=== PATIENT | female | born 1930 | race Caucasian/White ===

== ENCOUNTER 2018-01-19 19:51 | Inpatient (IN) | payer MEDICARE, OTHER ==
[~2018-01-19] VITALS: Ht 162.6 cm; Wt 46.7 kg
[2018-01-19 19:51] VITALS: BP_SYST 136
[2018-01-19] MEDS ORDERED: IPRATROPIUM/ALBUTEROL SULFATE 3 ML AMPUL.NEB (DUONEB) INH ONE (20:00)
[2018-01-19] MEDS ORDERED: ONDANSETRON HCL 4 MG/2 ML VIAL ONE (20:24)
[2018-01-19] MEDS ORDERED: ONDANSETRON HCL 4 MG/2 ML VIAL IVP ONE (20:30)
[2018-01-19 20:35] LABS: ANION GAP 7 (5-15); CALCIUM 9.3 mg/dL (8.4-11.0); CHLORIDE 102 mmol/L (98-107); CREATININE 4.85 mg/dL (0.55-1.30); GLUCOSE 91 mg/dL (70-99); POTASSIUM 3.9 mmol/L (3.5-5.1); SODIUM SERUM 142 mmol/L (136-145); UREA NITROGEN, BLOOD 64 mg/dL (8-21)
[2018-01-19 20:40] LABS: ALANINE AMINOTRANSFERASE 12 U/L (12-78); ALBUMIN 3.9 g/dL (3.4-4.8); ASPARTATE AMINOTRANSFERASE 13 U/L (10-37); TOTAL BILIRUBIN 0.7 mg/dL (0.0-1.0)
[2018-01-19 20:44] LABS: BASOPHILS % (AUTO) 0.1 % (0.0-2.0); EOSINOPHILS # (AUTO) 0.2 K/uL (0.0-0.4); EOSINOPHILS % (AUTO) 3.1 % (0.0-4.0); HEMATOCRIT 32.9 % (36-48); HEMOGLOBIN 10.9 g/dL (12.0-16.0); LYMPHOCYTES # (AUTO) 0.7 K/uL (1.0-5.5); LYMPHOCYTES % (AUTO) 10.3 % (20.5-51.5); MEAN CORPUSCULAR HEMOGLOBIN 32 pg (27-31); MEAN CORPUSCULAR HGB CONC 33 % (32-36); MEAN CORPUSCULAR VOLUME 97 fL (79.0-98.0); MONOCYTES # (AUTO) 0.6 K/uL (0.0-1.0); MONOCYTES % (AUTO) 7.8 % (1.7-9.3); NEUTROPHILS # (AUTO) 5.7 K/uL (1.8-7.7); NEUTROPHILS % (AUTO) 78.7 % (40.0-70.0); PLATELET COUNT (AUTO) 202 K/uL (130-430); RED CELL DISTRIBUTION WIDTH 15.6 % (9.0-15.0); WHITE BLOOD COUNT (AUTO) 7.2 K/uL (4.8-10.8)
[2018-01-19] MEDS ORDERED: fentaNYL CITRATE/PF 100 MCG/2 ML AMP IVP ONE (21:00)
[2018-01-19] MEDS ORDERED: FUROSEMIDE 40 MG/4 ML VIAL IVP ONE (21:15)
[2018-01-19] MEDS ORDERED: LIDOINT TP (22:39)
[2018-01-19] MEDS ORDERED: METO25TA6 PO (22:41)
[2018-01-19] MEDS ORDERED: TRAM50TA2 PO (22:42)
[2018-01-19] MEDS ORDERED: VITA1CAP PO (22:42)
[2018-01-19] MEDS ORDERED: LORA2TAB PO (22:43)
[2018-01-19] MEDS ORDERED: ISOS30TA6 PO (22:43)
[2018-01-19] MEDS ORDERED: PANT20TA2 PO (22:44)
[2018-01-19] MEDS ORDERED: FURO-149 PO (22:44)
[2018-01-19] MEDS ORDERED: LACT10SO6 PO (22:45)
[2018-01-19 22:46] LABS: CLARITY/URINE CLEAR (CLEAR); COLOR,URINE YELLOW (YELLOW); GLUCOSE,URINE NEGATIVE (NEGATIVE); PH,URINE 6.5 (5.0-8.0); PROTEIN URINE 1+ (NEGATIVE)
[2018-01-19] MEDS ORDERED: DOCU-144 PO (22:46)
[2018-01-19 22:47] LABS: BILIRUBIN,URINE NEGATIVE (NEGATIVE); BLOOD, URINE TRACE (NEGATIVE); KETONES,URINE NEGATIVE (NEGATIVE); LEUKOCYTE ESTERASE ,URINE 1+ (NEGATIVE); NITRITE, URINE NEGATIVE (NEGATIVE); UROBILINOGEN,URINE 0.2 (0.2-1.0)
[2018-01-19] MEDS ORDERED: PSYL3.4P5 PO (22:48)
[2018-01-19] MEDS ORDERED: ERGO500020 PO (22:49)
[2018-01-19 22:53] LABS: BACTERIA,URINE MANY /HPF (None Seen); WBC,URINE 80-100 /HPF (0-3)
[2018-01-19] MEDS ORDERED: NITSL SL (22:53)
[2018-01-19 22:54] LABS: YEAST,URINE Few /HPF (None Seen)
[2018-01-19] MEDS ORDERED: EMLA TP (22:55)
[2018-01-19] MEDS ORDERED: MYL80 PO (22:55)
[2018-01-19] MEDS ORDERED: POLY17PO4 PO (22:57)
[2018-01-19] MEDS ORDERED: DILT240C91 PO (22:58)
[2018-01-19] MEDS ORDERED: CHOL400C8 PO (22:58)
[2018-01-19] MEDS ORDERED: ACET-2634 PO (22:59)
[2018-01-19] MEDS ORDERED: CALC667T5 PO (23:00)
[2018-01-19] MEDS ORDERED: MOME13HF INH (23:00)
[2018-01-19] MEDS ORDERED: ALBU2.5V7 INH (23:01)
[2018-01-19] MEDS ORDERED: ATRMDI INH (23:03)
[2018-01-19] MEDS ORDERED: CALC0.258 PO (23:04)
[2018-01-19] MEDS ORDERED: TIOT4MIS5 IH (23:04)
[2018-01-19] MEDS ORDERED: ASPI-1153 PO (23:05)
[2018-01-19] MEDS ORDERED: IPRATROPIUM/ALBUTEROL SULFATE 3 ML AMPUL.NEB (DUONEB) INH PRN (23:15)
[2018-01-19 23:35] VITALS: BP_SYST 120
[2018-01-19 23:47] VITALS: BP_SYST 139
[2018-01-20 04:30] VITALS: BP_SYST 133
[2018-01-20] MEDS ORDERED: LORazepam 2 MG/ML VIAL IVP PRN (08:00)
[2018-01-20] MEDS ORDERED: POTASSIUM CHLORIDE 20 MEQ TAB.PRT.SR PO PRN (08:00)
[2018-01-20] MEDS ORDERED: IPRATROPIUM BROMIDE 17 mCg/ACTUATION, 12.9 GM AER.W.ADAP INH PRN (08:00)
[2018-01-20] MEDS ORDERED: DOCUSATE SODIUM 100 MG CAPSULE PO PRN (08:00)
[2018-01-20] MEDS ORDERED: ALBUTEROL SULFATE 0.083% 2.5 MG/3 ML VIAL.NEB INH PRN (08:00)
[2018-01-20] MEDS ORDERED: MAGNESIUM SULFATE 50 ML IV PRN (08:00)
[2018-01-20] MEDS ORDERED: MORPHINE 4 MG/ML INJ. SYRINGE IVP PRN ×2 (08:00)
[2018-01-20] MEDS ORDERED: ZOLPIDEM TARTRATE 5 MG TABLET PO PRN (08:00)
[2018-01-20] MEDS ORDERED: ACETAMINOPHEN 325 MG TABLET PO PRN (08:00)
[2018-01-20 08:03] VITALS: BP_SYST 140
[2018-01-20] MEDS ORDERED: FLUTICASONE/VILANTEROL 1 EACH BLST.W.DEV INH SCH (09:00)
[2018-01-20] MEDS ORDERED: cefTRIAXone 1 GM in D5W 50 ML IV SCH (09:00)
[2018-01-20] MEDS: HEPARIN SODIUM,PORCINE 5000 UNITS/ML VIAL SUBCUT SCH ×2 (09:30→21:00)
[2018-01-20] MEDS: FUROSEMIDE 40 MG TABLET PO SCH (09:31)
[2018-01-20] MEDS: DILTIAZEM HCL 240 MG CAP.SR.24H PO SCH (09:31)
[2018-01-20] MEDS: ISOSORBIDE MONONITRATE 30 MG TAB.ER.24H PO SCH (09:32)
[2018-01-20] MEDS: FLUCONAZOLE 100 MG TABLET (DIFLUCAN) PO SCH (09:32)
[2018-01-20] MEDS: METOPROLOL TARTRATE 25 MG TABLET PO SCH ×3 (09:32→22:51)
[2018-01-20] MEDS: PIPERACILLIN/TAZO 2.25G/DEX-IS 50 ML IV SCH ×3 (09:57→22:51)
[2018-01-20] MEDS ORDERED: IPRATROPIUM BROM 0.5 MG/2.5 ML VIAL.NEB (ATROVENT) INH SCH (11:00)
[2018-01-20] MEDS ORDERED: methylPREDNISolone SOD SUCC 40 MG/ML VIAL IVP ONE (11:30)
[2018-01-20 12:07] VITALS: BP_SYST 111
[2018-01-20 16:00] VITALS: BP_SYST 117
[2018-01-20] MEDS: IPRATROPIUM BROM 0.5 MG/2.5 ML VIAL.NEB (ATROVENT) INH SCH (19:59)
[2018-01-20] MEDS: ALBUTEROL SULFATE 0.083% 2.5 MG/3 ML VIAL.NEB INH SCH (19:59)
[2018-01-20 20:00] VITALS: BP_SYST 129
[2018-01-20] MEDS: methylPREDNISolone SOD SUCC 40 MG/ML VIAL IVP SCH ×2 (21:00→22:50)
[2018-01-21 01:02] VITALS: BP_SYST 102
[2018-01-21] MEDS: ALBUTEROL SULFATE 0.083% 2.5 MG/3 ML VIAL.NEB INH SCH ×3 (01:05→14:10)
[2018-01-21] MEDS: IPRATROPIUM BROM 0.5 MG/2.5 ML VIAL.NEB (ATROVENT) INH SCH ×3 (01:05→14:11)
[2018-01-21] MEDS: PIPERACILLIN/TAZO 2.25G/DEX-IS 50 ML IV SCH ×2 (05:29→13:29)
[2018-01-21 07:37] LABS: BASOPHILS % (AUTO) 0.1 % (0.0-2.0); EOSINOPHILS % (AUTO) 0.1 % (0.0-4.0); HEMATOCRIT 30.9 % (36-48); HEMOGLOBIN 9.9 g/dL (12.0-16.0); LYMPHOCYTES # (AUTO) 0.4 K/uL (1.0-5.5); LYMPHOCYTES % (AUTO) 7.6 % (20.5-51.5); MEAN CORPUSCULAR HEMOGLOBIN 31 pg (27-31); MEAN CORPUSCULAR HGB CONC 32 % (32-36); MEAN CORPUSCULAR VOLUME 96 fL (79.0-98.0); MONOCYTES # (AUTO) 0.3 K/uL (0.0-1.0); MONOCYTES % (AUTO) 4.7 % (1.7-9.3); NEUTROPHILS # (AUTO) 5.1 K/uL (1.8-7.7); NEUTROPHILS % (AUTO) 87.5 % (40.0-70.0); PLATELET COUNT (AUTO) 187 K/uL (130-430); RED BLOOD CELL COUNT(AUTO) 3.21 MIL/uL (4.2-6.2); RED CELL DISTRIBUTION WIDTH 15.3 % (9.0-15.0); WHITE BLOOD COUNT (AUTO) 5.8 K/uL (4.8-10.8)
[2018-01-21 08:00] VITALS: BP_SYST 120
[2018-01-21 08:13] LABS: ALANINE AMINOTRANSFERASE 23 U/L (12-78); ALBUMIN 3.3 g/dL (3.4-4.8); ANION GAP 10 (5-15); ASPARTATE AMINOTRANSFERASE 21 U/L (10-37); CALCIUM 8.7 mg/dL (8.4-11.0); CHLORIDE 99 mmol/L (98-107); CHOLESTEROL 139 mg/dL (<200); GLUCOSE 119 mg/dL (70-99); HDL CHOLESTEROL 42 mg/dL (>55); LDL CHOLESTEROL 79 mg/dL (<100); POTASSIUM 4.2 mmol/L (3.5-5.1); SODIUM SERUM 137 mmol/L (136-145); THYROID STIMULATING HORMONE 0.49 uIu/mL (0.34-4.82); TOTAL BILIRUBIN 0.6 mg/dL (0.0-1.0); TRIGLYCERIDES 100 mg/dL (30-150); UREA NITROGEN, BLOOD 55 mg/dL (8-21)
[2018-01-21] MEDS: HEPARIN SODIUM,PORCINE 5000 UNITS/ML VIAL SUBCUT SCH (09:00)
[2018-01-21] MEDS: ISOSORBIDE MONONITRATE 30 MG TAB.ER.24H PO SCH (09:00)
[2018-01-21] MEDS: methylPREDNISolone SOD SUCC 40 MG/ML VIAL IVP SCH (09:00)
[2018-01-21] MEDS: FUROSEMIDE 40 MG TABLET PO SCH (09:00)
[2018-01-21] MEDS: FLUCONAZOLE 100 MG TABLET (DIFLUCAN) PO SCH (09:00)
[2018-01-21] MEDS: METOPROLOL TARTRATE 25 MG TABLET PO SCH (09:00)
[2018-01-21] MEDS: DILTIAZEM HCL 240 MG CAP.SR.24H PO SCH (09:00)
[2018-01-21 11:26] VITALS: BP_SYST 120
[2018-01-21 14:00] VITALS: BP_SYST 127
[2018-01-21] MEDS ORDERED: MUPIROCIN 2% TOPICAL OINTMENT 22 GM NS SCH (21:00)
[2018-01-22] MEDS ORDERED: methylPREDNISolone SOD SUCC 40 MG/ML VIAL IVP SCH (09:00)
== END 2018-01-21 14:49 | disposition short-term general hospital (02) | DRG 177 ==
LOC: SED 19:51 → STU 23:06
PROVIDERS: ADMIT General Practice; ATTEND General Practice
PROC: 5A1D70Z Performance of Urinary Filtration, Intermittent, Less than 6 Hours Per Day (ICD-10-PCS; principal; 2018-01-20)
DX: J69.0 Pneumonitis due to inhalation of food and vomit (principal); J96.00 Acute respiratory failure, unspecified whether with hypoxia or hypercapnia; N18.6 End stage renal disease; N17.0 Acute kidney failure with tubular necrosis; I50.43 Acute on chronic combined systolic (congestive) and diastolic (congestive) heart failure; I13.2 Hypertensive heart and chronic kidney disease with heart failure and with stage 5 chronic kidney disease, or end stage renal disease; N39.0 Urinary tract infection, site not specified; J44.1 Chronic obstructive pulmonary disease with (acute) exacerbation; I25.10 Atherosclerotic heart disease of native coronary artery without angina pectoris; K21.9 Gastro-esophageal reflux disease without esophagitis; G89.29 Other chronic pain; F03.90 Unspecified dementia, unspecified severity, without behavioral disturbance, psychotic disturbance, mood disturbance, and anxiety; E11.22 Type 2 diabetes mellitus with diabetic chronic kidney disease; D63.1 Anemia in chronic kidney disease; E11.51 Type 2 diabetes mellitus with diabetic peripheral angiopathy without gangrene; Z51.5 Encounter for palliative care; I08.0 Rheumatic disorders of both mitral and aortic valves; F17.210 Nicotine dependence, cigarettes, uncomplicated; Z66 Do not resuscitate; I25.2 Old myocardial infarction; Z99.2 Dependence on renal dialysis; Z86.73 Personal history of transient ischemic attack (TIA), and cerebral infarction without residual deficits; Z88.8 Allergy status to other drugs, medicaments and biological substances; Z88.2 Allergy status to sulfonamides; Z91.048 Other nonmedicinal substance allergy status; Z88.5 Allergy status to narcotic agent; Z79.82 Long term (current) use of aspirin; Z79.899 Other long term (current) drug therapy; Z88.1 Allergy status to other antibiotic agents; Z71.6 Tobacco abuse counseling
CPT/HCPCS: 36415; 36600; 71045; 80053; 80061; 81000-TC; 82803-TC; 83036; 83605; 83735-TC; 83880; 84443-TC; 84484; 85025; 87040-TC; 87081; 87086; 90935; 93005; 93306; 94640; 94760; 96374; 96375; 99285; G0378; J0696; J1030; J1644; J1940; J2060; J2405; J2543; J3010; J7060; J7613; J7620

== ENCOUNTER 2018-03-31 12:16 | Emergency (ER) | payer MEDICARE, OTHER ==
[2018-03-31 12:16] VITALS: BP_SYST 135
[~2018-03-31 12:16] MED LIST: ACET-2634 PO; ALBU2.5V7 INH; ASPI-1153 PO; ATRMDI INH; CALC0.258 PO; CALC667T5 PO; CHOL400C8 PO; DILT240C91 PO; DOCU-144 PO; EMLA TP; ERGO500020 PO; FURO-149 PO; ISOS30TA6 PO; LACT10SO6 PO; LIDOINT TP; LORA2TAB PO; METO25TA6 PO; MOME13HF INH; MYL80 PO; NITSL SL; PANT20TA2 PO; POLY17PO4 PO; PSYL3.4P5 PO; TIOT4MIS5 IH; TRAM50TA2 PO; VITA1CAP PO
--- NOTE | 2018-03-31 12:18 | NUR ---
1218 - Patient to ER bed 8 to gown for evaluation. Side rails up. Report given to SANGEETA Haywood.
[2018-03-31] MEDS ORDERED: ASPIRIN 81 MG TAB.CHEW PO ONE (12:30)
--- NOTE | 2018-03-31 12:38 | NUR ---
Patient arrived to ER via BLS, dialysis center. Patient A&O x4, VS stable at this time, respirations equal bilat and no distress observed at this time. Patient states no pain at this time. Patient states she was at dialysis center receiving treatment, treatment was almost complete when chest pain began. AV fistula to left arm.
--- NOTE | 2018-03-31 12:39 | NUR ---
Pt states she took aspirin prior arrival, patient refused aspiring at this time
--- NOTE | 2018-03-31 13:17 | NUR ---
ER at bedside examining patient.
[2018-03-31 13:20] LABS: BASOPHILS % (AUTO) 0.6 % (0.0-2.0); EOSINOPHILS # (AUTO) 0.2 K/uL (0.0-0.4); EOSINOPHILS % (AUTO) 3.1 % (0.0-4.0); HEMATOCRIT 30.4 % (36-48); HEMOGLOBIN 9.7 g/dL (12.0-16.0); LYMPHOCYTES # (AUTO) 0.9 K/uL (1.0-5.5); LYMPHOCYTES % (AUTO) 15.4 % (20.5-51.5); MEAN CORPUSCULAR HEMOGLOBIN 29 pg (27-31); MEAN CORPUSCULAR HGB CONC 32 % (32-36); MEAN CORPUSCULAR VOLUME 91 fL (79.0-98.0); MONOCYTES # (AUTO) 0.5 K/uL (0.0-1.0); MONOCYTES % (AUTO) 8.5 % (1.7-9.3); NEUTROPHILS # (AUTO) 4.1 K/uL (1.8-7.7); NEUTROPHILS % (AUTO) 72.4 % (40.0-70.0); PLATELET COUNT (AUTO) 243 K/uL (130-430); RED BLOOD CELL COUNT(AUTO) 3.33 MIL/uL (4.2-6.2); RED CELL DISTRIBUTION WIDTH 18.5 % (9.0-15.0); WHITE BLOOD COUNT (AUTO) 5.7 K/uL (4.8-10.8)
[2018-03-31 13:46] LABS: ANION GAP 5 (5-15); CHLORIDE 99 mmol/L (98-107); CREATININE 1.72 mg/dL (0.55-1.30); GLUCOSE 85 mg/dL (70-99); POTASSIUM 3.3 mmol/L (3.5-5.1); SODIUM SERUM 139 mmol/L (136-145); UREA NITROGEN, BLOOD 23 mg/dL (8-21)
[2018-03-31 13:49] LABS: PROTHROMBIN TIME 10.1 SECS (9.5-12.5)
[2018-03-31 13:51] LABS: ALANINE AMINOTRANSFERASE 16 U/L (12-78); ALBUMIN 3.3 g/dL (3.4-4.8); ASPARTATE AMINOTRANSFERASE 18 U/L (10-37); TOTAL BILIRUBIN 0.6 mg/dL (0.0-1.0)
--- NOTE | 2018-03-31 13:54 | NUR ---
Pt c/o back pain /chest pain, Dr Lala notified, no new orders received at this time, Dr Lala to see patient.
[2018-03-31] MEDS ORDERED: fentaNYL CITRATE/PF 100 MCG/2 ML AMP IVP ONE ×2 (14:15→16:30)
--- NOTE | 2018-03-31 14:36 | NUR ---
Pt medicated with Fentanyl 12.5 MCG for back/chest pain, well tolerated, will continue to monitor.
--- NOTE | 2018-03-31 15:00 | NUR ---
ER at bedside examining patient.
--- NOTE | 2018-03-31 15:14 | NUR ---
Report given to Amish RUTHERFORD
--- NOTE | 2018-03-31 17:03 | NUR ---
Patient sleeping in gurney, VS stable,
--- NOTE | 2018-03-31 17:10 | NUR ---
Received a phone call from [facility], patient to be transfer to [facility], accepting Dr Bess [phone] transport will arrive at 1800.
--- NOTE | 2018-03-31 18:15 | NUR ---
Pt resting at this time, VSS, respirations even and unlabored.
--- NOTE | 2018-03-31 18:35 | NUR ---
Note undone in EDM - 03/31/18 at 2021 by SDEDAFJ Patient to be transferred to [facility] . Is being transferred due to higher level of care. Receiving facility has accepting physician and available space. ER physician has signed transfer form. Patient or responsible green party has agreed to transfer and signed form. Patient belongings inventoried and will be sent with patient. Copy of nursing notes, lab reports, EKG, Physicians Orders and X-rays to be sent with patient. Report called to at receiving facility. Receiving physician is . ambulance service has been called for transfer. ETA of 1830.
--- NOTE | 2018-03-31 18:38 | NUR ---
Called Nathan Clark to give report on patient status [phone] , pt on stable condition, VSS.
[2018-03-31 18:39] VITALS: BP_SYST 136
--- NOTE | 2018-03-31 18:39 | NUR ---
Patient to be transferred to [facility] . Is being transferred due to higher level of care. Receiving facility has accepting physician and available space. ER physician has signed transfer form. Patient or responsible democrat has agreed to transfer and signed form. Patient belongings inventoried and will be sent with patient. Copy of nursing notes, lab reports, EKG, Physicians Orders and X-rays to be sent with patient. Report called to Jarvis at receiving facility. Receiving physician is Zaid. ambulance service has been called for transfer.
== END 2018-03-31 18:39 | disposition short-term general hospital (02) ==
LOC: SED 12:16
DX: I13.0 Hypertensive heart and chronic kidney disease with heart failure and stage 1 through stage 4 chronic kidney disease, or unspecified chronic kidney disease (principal); I50.9 Heart failure, unspecified; N18.9 Chronic kidney disease, unspecified; R07.89 Other chest pain; J44.9 Chronic obstructive pulmonary disease, unspecified; Z88.2 Allergy status to sulfonamides; Z88.8 Allergy status to other drugs, medicaments and biological substances; Z91.041 Radiographic dye allergy status; Z79.82 Long term (current) use of aspirin; Z79.899 Other long term (current) drug therapy
CPT/HCPCS: 36415; 71045; 80053; 82550; 83880; 84484; 85025; 85379; 85610; 85730; 93005; 96374; 99285; J3010